=== PATIENT | male | born 1975 ===

== ENCOUNTER 2020-10-10 07:51 | Outpatient (CLI) | payer OTHER | END 2020-10-10 15:00 | disposition home or self-care (01) | LOC: LAB 07:51 | PROVIDERS: ATTEND Orthopaedic Surgery Hand Surgery | DX: Z20.828 Contact with and (suspected) exposure to other viral communicable diseases (principal); R05 Cough ==

== ENCOUNTER 2020-10-17 06:00 | Day surgery (SDC) | payer OTHER | END 2020-10-17 12:40 | disposition home or self-care (01) | LOC: CIR.AMB 06:00 | PROVIDERS: ATTEND Orthopaedic Surgery Hand Surgery | DX: M65.331 Trigger finger, right middle finger (principal); Z20.828 Contact with and (suspected) exposure to other viral communicable diseases ==